=== PATIENT | female | born 1990 | race Caucasian/White ===

== ENCOUNTER 2017-09-23 00:10 | Inpatient (IN) | payer OTHER, SELFPAY ==
[~2017-09-23] VITALS: Ht 157.5 cm; Wt 79.8 kg
[2017-09-23] MEDS ORDERED: OXYTOCIN/0.9 % SODIUM CHLORIDE 1,000 ML IV SCH ×2 (01:17→09:50)
[2017-09-23] MEDS ORDERED: NALBUPHINE HCL 10 MG/ML AMP IVP PRN (01:30)
[2017-09-23] MEDS ORDERED: TERBUTALINE SULFATE 1 MG/ML VIAL SUBCUT ONE (01:30)
[2017-09-23] MEDS: LR 1,000 ML IV SCH ×3 (02:20→07:48)
[2017-09-23 02:24] LABS: BASOPHILS % (AUTO) 0.4 % (0.0-2.0); EOSINOPHILS # (AUTO) 0.1 K/uL (0.0-0.4); EOSINOPHILS % (AUTO) 0.8 % (0.0-4.0); HEMATOCRIT 37.7 % (36-48); HEMOGLOBIN 12.9 g/dL (12.0-16.0); LYMPHOCYTES % (AUTO) 27.7 % (20.5-51.5); MEAN CORPUSCULAR HEMOGLOBIN 32 pg (27-31); MEAN CORPUSCULAR HGB CONC 34 % (32-36); MEAN CORPUSCULAR VOLUME 92 fL (79.0-98.0); MONOCYTES # (AUTO) 0.5 K/uL (0.0-1.0); NEUTROPHILS # (AUTO) 4.5 K/uL (1.8-7.7); NEUTROPHILS % (AUTO) 64.1 % (40.0-70.0); PLATELET COUNT (AUTO) 234 K/uL (130-430); RED BLOOD CELL COUNT(AUTO) 4.09 MIL/uL (4.2-6.2); RED CELL DISTRIBUTION WIDTH 12.6 % (9.0-15.0); WHITE BLOOD COUNT (AUTO) 7.1 K/uL (4.8-10.8)
[2017-09-23 03:32] VITALS: BP_SYST 125
[2017-09-23] MEDS ORDERED: ROPIVACAINE 0.2% 100 ML ONE (05:27)
[2017-09-23] MEDS ORDERED: fentaNYL CITRATE/PF 100 MCG/2 ML AMP ONE (05:27)
[2017-09-23] MEDS ORDERED: LR 500 ML IV ONE (05:46)
[2017-09-23] MEDS ORDERED: FENT2mCg/mL-ROPIVA0.2%/NS EPID 150 ML EP SCH (06:00)
[2017-09-23] MEDS ORDERED: OXYTOCIN/0.9 % SODIUM CHLORIDE 1,000 ML IV ONE (09:50)
[2017-09-23] MEDS ORDERED: SENNOSIDES/DOCUSATE SODIUM 1 TAB TABLET(SENOKOT-S) PO PRN (10:00)
[2017-09-23] MEDS ORDERED: MEASLES,MUMPS&RUBELLA VACC/PF 12500 UNIT/0.5 ML VIAL SUBQ PRN (10:00)
[2017-09-23] MEDS ORDERED: ANUSOL 1 EA SUPP.RECT (PREPARATION H) RC PRN (10:00)
[2017-09-23] MEDS ORDERED: WITCH HAZEL LEAF 1 MED.PAD MED.PAD TP PRN (10:00)
[2017-09-23] MEDS ORDERED: HYDROCORTISONE 0.5%, 28.35 GM TOPICAL CREAM TP PRN (10:00)
[2017-09-23] MEDS ORDERED: METHYLERGONOVINE MALEATE 0.2 MG TABLET PO PRN (10:00)
[2017-09-23] MEDS ORDERED: OXYCODONE/ACETAMINOPHEN 5-325 TABLET PO PRN ×2 (10:00)
[2017-09-23] MEDS ORDERED: LANOLIN 7 GM OINT. TP PRN (10:00)
[2017-09-23] MEDS ORDERED: DERMOPLAST SPRAY TP PRN (10:00)
[2017-09-23] MEDS ORDERED: RHO(D) IMMUNE GLOBULIN/MALTOSE 1500 UNITS/1.3 ML (WINHRO) IM PRN (10:00)
[2017-09-23] MEDS ORDERED: DIPH-TET-PERTUS Vaccine 0.5 ML VIAL (ADACEL) I.M. PRN (10:00)
[2017-09-23] MEDS: IBUPROFEN 600 MG TABLET PO SCH ×3 (12:12→23:45)
[2017-09-23] MEDS ORDERED: TEMAZEPAM 15 MG CAPSULE PO PRN (21:00)
[2017-09-23] MEDS: DOCUSATE SODIUM 100 MG CAPSULE PO PRN (22:59)
[2017-09-24] MEDS: DOCUSATE SODIUM 100 MG CAPSULE PO PRN (06:04)
[2017-09-24] MEDS: IBUPROFEN 600 MG TABLET PO SCH ×2 (06:05→12:37)
[2017-09-24 06:48] LABS: BASOPHILS # (AUTO) 0.1 K/uL (0.0-0.2); BASOPHILS % (AUTO) 0.7 % (0.0-2.0); EOSINOPHILS # (AUTO) 0.1 K/uL (0.0-0.4); EOSINOPHILS % (AUTO) 0.8 % (0.0-4.0); HEMOGLOBIN 11.3 g/dL (12.0-16.0); LYMPHOCYTES # (AUTO) 1.8 K/uL (1.0-5.5); LYMPHOCYTES % (AUTO) 17.5 % (20.5-51.5); MEAN CORPUSCULAR HEMOGLOBIN 32 pg (27-31); MEAN CORPUSCULAR HGB CONC 34 % (32-36); MEAN CORPUSCULAR VOLUME 93 fL (79.0-98.0); MONOCYTES # (AUTO) 0.6 K/uL (0.0-1.0); MONOCYTES % (AUTO) 6.3 % (1.7-9.3); NEUTROPHILS # (AUTO) 7.6 K/uL (1.8-7.7); NEUTROPHILS % (AUTO) 74.7 % (40.0-70.0); PLATELET COUNT (AUTO) 176 K/uL (130-430); RED BLOOD CELL COUNT(AUTO) 3.57 MIL/uL (4.2-6.2); WHITE BLOOD COUNT (AUTO) 10.2 K/uL (4.8-10.8)
== END 2017-09-24 13:20 | disposition home or self-care (01) | DRG 775 ==
LOC: UNDOADMIN 00:10 → SPU 00:10
PROVIDERS: ADMIT Obstetrics & Gynecology; ATTEND Obstetrics & Gynecology
PROC: 10E0XZZ Delivery of Products of Conception, External Approach (ICD-10-PCS; principal; 2017-09-23)
PROC: 3E0R3BZ Introduction of Anesthetic Agent into Spinal Canal, Percutaneous Approach (ICD-10-PCS; 2017-09-23)
PROC: 00HU33Z Insertion of Infusion Device into Spinal Canal, Percutaneous Approach (ICD-10-PCS; 2017-09-23)
PROC: 3E033VJ Introduction of Other Hormone into Peripheral Vein, Percutaneous Approach (ICD-10-PCS; 2017-09-23)
DX: O69.81X0 Labor and delivery complicated by cord around neck, without compression, not applicable or unspecified (principal); Z3A.39 39 weeks gestation of pregnancy; Z37.0 Single live birth
CPT/HCPCS: 36415; 81002-TC; 85025; 86592; 86886; 86900; 86901; J2590; J2795; J3010; J7120

== ENCOUNTER 2019-07-04 07:29 | Inpatient (IN) | payer OTHER ==
[~2019-07-04] VITALS: Ht 157.5 cm; Wt 71.7 kg
[2019-07-04 07:30] VITALS: BP_SYST 113
[2019-07-04] MEDS ORDERED: NACL 0.9% 1,000 ML IV ONE (07:51)
[2019-07-04] MEDS ORDERED: ONDANSETRON HCL 4 MG/2 ML VIAL IVP ONE (08:00)
[2019-07-04 08:23] LABS: BASOPHILS # (AUTO) 0.1 K/uL (0.0-0.2); BASOPHILS % (AUTO) 0.4 % (0.0-2.0); EOSINOPHILS % (AUTO) 0.3 % (0.0-4.0); HEMATOCRIT 37.4 % (36-48); HEMOGLOBIN 12.6 g/dL (12.0-16.0); LYMPHOCYTES # (AUTO) 1.5 K/uL (1.0-5.5); LYMPHOCYTES % (AUTO) 11.8 % (20.5-51.5); MEAN CORPUSCULAR HEMOGLOBIN 31 pg (27-31); MEAN CORPUSCULAR HGB CONC 34 % (32-36); MEAN CORPUSCULAR VOLUME 92 fL (79.0-98.0); MONOCYTES # (AUTO) 0.6 K/uL (0.0-1.0); MONOCYTES % (AUTO) 4.9 % (1.7-9.3); NEUTROPHILS # (AUTO) 10.6 K/uL (1.8-7.7); NEUTROPHILS % (AUTO) 82.6 % (40.0-70.0); PLATELET COUNT (AUTO) 291 K/uL (130-430); RED BLOOD CELL COUNT(AUTO) 4.08 MIL/uL (4.2-6.2); RED CELL DISTRIBUTION WIDTH 13.2 % (9.0-15.0); WHITE BLOOD COUNT (AUTO) 12.9 K/uL (4.8-10.8)
[2019-07-04 08:35] LABS: CALCIUM 7.9 mg/dL (8.4-11.0); CREATININE 0.89 mg/dL (0.55-1.30); POTASSIUM 3.6 mmol/L (3.5-5.1)
[2019-07-04 08:37] LABS: PROTHROMBIN TIME 9.8 SECS (9.5-12.5)
[2019-07-04 08:40] LABS: ALBUMIN 3.5 g/dL (3.4-4.8); TOTAL BILIRUBIN 0.6 mg/dL (0.0-1.0)
[2019-07-04] MEDS ORDERED: MORPHINE 4 MG/ML INJ. SYRINGE IVP ONE (08:45)
[2019-07-04 12:59] LABS: BILIRUBIN,URINE NEGATIVE (NEGATIVE); BLOOD, URINE NEGATIVE (NEGATIVE); CLARITY/URINE CLEAR (CLEAR); COLOR,URINE YELLOW (YELLOW); GLUCOSE,URINE NEGATIVE (NEGATIVE); KETONES,URINE NEGATIVE (NEGATIVE); LEUKOCYTE ESTERASE ,URINE NEGATIVE (NEGATIVE); NITRITE, URINE NEGATIVE (NEGATIVE); PH,URINE 5.5 (5.0-8.0); PROTEIN URINE TRACE (NEGATIVE); UROBILINOGEN,URINE 0.2 (0.2-1.0)
[2019-07-04] MEDS ORDERED: NACL 0.9% 1,000 ML IV SCH (13:00)
[2019-07-04] MEDS ORDERED: MORPHINE 2 MG/ML INJ. SYRINGE IVP PRN ×2 (13:00→15:15)
[2019-07-04 13:46] VITALS: BP_SYST 125
[2019-07-04] MEDS ORDERED: ZOLPIDEM TARTRATE 5 MG TABLET PO PRN (15:15)
[2019-07-04] MEDS ORDERED: ONDANSETRON HCL 4 MG/2 ML VIAL IVP PRN ×3 (15:15→20:45)
[2019-07-04] MEDS ORDERED: LORazepam 2 MG/ML VIAL IVP PRN (15:15)
[2019-07-04] MEDS ORDERED: MUPIROCIN 2% TOPICAL OINTMENT 22 GM NS PRN (15:15)
[2019-07-04] MEDS ORDERED: ACETAMINOPHEN 325 MG TABLET PO PRN (15:15)
[2019-07-04] MEDS ORDERED: MAGNESIUM SULFATE 50 ML IV PRN (15:15)
[2019-07-04] MEDS ORDERED: HYDROmorphone 2 MG/ML VIAL IVP PRN ×2 (15:15)
[2019-07-04] MEDS ORDERED: POTASSIUM CHLORIDE 20 MEQ TAB.PRT.SR PO PRN (15:15)
[2019-07-04] MEDS ORDERED: DOCUSATE SODIUM 100 MG CAPSULE PO PRN (15:15)
[2019-07-04 16:22] VITALS: BP_SYST 109
[2019-07-04] MEDS: D5NS 1,000 ML IV SCH (18:15)
[2019-07-04] MEDS ORDERED: BUPIVACAINE /EPINEPHRINE/PF 0.5% 30 ML VIAL INJ ONE (19:00)
[2019-07-04] MEDS ORDERED: PROPOFOL 200MG/ 20ML VIAL (DIPRIVAN) IV ONE (19:00)
[2019-07-04] MEDS ORDERED: CEFAZOLIN 2 GM IVPB PREMIX 50 ML IV ONE (19:00)
[2019-07-04] MEDS ORDERED: fentaNYL CITRATE/PF 100 MCG/2 ML AMP IVP ONE (19:00)
[2019-07-04] MEDS ORDERED: LR 1,000 ML IV.SOLN IV ONE (19:00)
[2019-07-04] MEDS ORDERED: NS 1000 ML IV.SOLN IV ONE (19:00)
[2019-07-04] MEDS ORDERED: ROCURONIUM BROMIDE 10 MG/ML (ZEMURON) IV ONE (19:00)
[2019-07-04] MEDS ORDERED: MIDAZOLAM HCL 5 MG/5 ML VIAL IVP ONE (19:00)
[2019-07-04] MEDS ORDERED: SEVOFLURANE 15 MIN GAS INH ONE (19:00)
[2019-07-04] MEDS ORDERED: fentaNYL CITRATE/PF 100 MCG/2 ML AMP IVP PRN ×2 (19:45)
[2019-07-04] MEDS ORDERED: HYDROcodone/ACETAMIN 5-325 MG TAB (NORCO/ VICODIN) PO PRN (20:45)
[2019-07-04] MEDS ORDERED: OXYCODONE/ACETAMINOPHEN 5-325 TABLET PO PRN ×2 (20:45)
[2019-07-05] MEDS: MORPHINE 2 MG/ML INJ. SYRINGE IVP PRN ×8 (00:28→06:41)
[2019-07-05 00:31] VITALS: BP_SYST 103
[2019-07-05] MEDS: D5NS 1,000 ML IV SCH (04:00)
[2019-07-05 04:08] VITALS: BP_SYST 142
[2019-07-05 06:59] LABS: BASOPHILS % (AUTO) 0.6 % (0.0-2.0); EOSINOPHILS % (AUTO) 0.2 % (0.0-4.0); HEMATOCRIT 25.5 % (36-48); LYMPHOCYTES # (AUTO) 1.6 K/uL (1.0-5.5); LYMPHOCYTES % (AUTO) 26.1 % (20.5-51.5); MEAN CORPUSCULAR HEMOGLOBIN 31 pg (27-31); MEAN CORPUSCULAR HGB CONC 34 % (32-36); MEAN CORPUSCULAR VOLUME 93 fL (79.0-98.0); MONOCYTES # (AUTO) 0.5 K/uL (0.0-1.0); MONOCYTES % (AUTO) 8.4 % (1.7-9.3); NEUTROPHILS # (AUTO) 3.9 K/uL (1.8-7.7); NEUTROPHILS % (AUTO) 64.7 % (40.0-70.0); PLATELET COUNT (AUTO) 191 K/uL (130-430); RED BLOOD CELL COUNT(AUTO) 2.73 MIL/uL (4.2-6.2); RED CELL DISTRIBUTION WIDTH 13.2 % (9.0-15.0); WHITE BLOOD COUNT (AUTO) 6.1 K/uL (4.8-10.8)
[2019-07-05 07:21] LABS: CALCIUM 7.1 mg/dL (8.4-11.0); CREATININE 0.59 mg/dL (0.55-1.30); POTASSIUM 3.5 mmol/L (3.5-5.1)
[2019-07-05 07:56] LABS: HEMOGLOBIN 8.5 g/dL (12.0-16.0)
[2019-07-05 08:01] VITALS: BP_SYST 116
[2019-07-05 08:24] VITALS: BP_SYST 116
== END 2019-07-05 09:45 | disposition home or self-care (01) | DRG 742 ==
LOC: SED 07:29 → SMU 12:53
PROVIDERS: ADMIT General Practice; ATTEND General Practice
PROC: 0W3G4ZZ Control Bleeding in Peritoneal Cavity, Percutaneous Endoscopic Approach (ICD-10-PCS; 2019-07-04)
PROC: 0UB04ZZ Excision of Right Ovary, Percutaneous Endoscopic Approach (ICD-10-PCS; principal; 2019-07-04 19:30)
DX: N83.201 Unspecified ovarian cyst, right side (principal); K66.1 Hemoperitoneum; N83.202 Unspecified ovarian cyst, left side; N92.6 Irregular menstruation, unspecified
CPT/HCPCS: 36415; 70450-TC; 70486-TC; 71045; 76830-TC; 76857; 80048; 80053; 81003; 82150-TC; 83036; 83605; 83690-TC; 83735-TC; 83880; 84702-TC; 85025; 85610-TC; 85730-TC; 87040-TC; 88305; 96374; 99285; C1727; J0690; J2250; J2270; J2405; J2704; J3010; J3490; J7030; J7042; J7120